=== PATIENT | female | born 1970 | race African-American/Black ===

== ENCOUNTER 2021-09-28 18:34 | Emergency (ER) | payer OTHER, SELFPAY ==
--- NOTE | 2021-09-28 18:38 | ED.BACK ---
HPI - Back Pain/Injury General Chief Complaint: Back Pain/Injury Stated Complaint: back pain Time Seen by Provider: 09/28/21 18:43 Source: patient, family and RN notes reviewed Mode of arrival: ambulatory Limitations: no limitations History of Present Illness HPI Narrative: 51 year old female who presents to [facility] accompanied by spouse with complaints of back pain mid thoracic region but denies any injury to her back for the past 4 days. Patient states that when she takes her vitamins in the morning she notices that her pain in her back is worse for 3-4 hours at 8/10 level then decreases.Patient states that she has not taken any OTC medications for her discomfort. Patient denies any pain at this time. Patient states history of parathyroidectomy in past concerned could maybe related to her calcium levels or maybe she has urinary problem. Patient denies any chest pain or any shortness of breath, denies any upper epigastric burning or any recent cold symptoms. MD elicited complaint: back pain Pertinent past history: prior back pain Timing: intermittent Related Data Home Medications Medication Instructions Recorded Confirmed [id number] K 1 tablet PO DIRECTED 09/28/21 09/28/21 [Adults Multivitamin] Allergies Allergy/AdvReac Type Severity Reaction Status Date / Time aspirin Allergy Unknown Verified 07/10/18 11:28 ioversol Allergy Unknown Verified 07/12/14 14:33 CODONE Allergy Unknown BREATHING Uncoded 08/25/15 15:11 ISSUES Contrast Media Allergy Unknown Uncoded 07/10/18 11:28 Review of Systems Review of Systems: CONSTITUTIONAL: Denies fever, chills, or sweats. EYES: Denies visual changes, redness, or discharge. ENT: Denies rhinorrhea, congestion, sore throat, or otalgia. CARDIOVASCULAR: Denies chest pain, palpitations, or edema. RESPIRATORY: Denies cough or dyspnea. GASTROINTESTINAL: Denies abdominal pain, nausea, vomiting, or diarrhea. GENITOURINARY: Denies dysuria or hematuria. SKIN: Denies rash or itching. MUSCULOSKELETAL: Reports thoracic back pain, no other joint pain, or myalgia. NEUROLOGIC: Denies headache, numbness, or weakness. PSYCHIATRIC: Denies anxiety or depression. All systems reviewed & are unremarkable except as noted in HPI and below PMFSH Past Medical History Medical History (Updated 09/29/21 @ 23:09 by Karyna Womack NP) Seasonal allergies Surgical History Surgical History (Updated 09/28/21 @ 19:22 by Karyna Womack NP) History of parathyroidectomy 2014 Family History Family History Father Malignant neoplasm of prostate Family history of diabetes mellitus in first degree relative Family history of heart disease in male family member before age 55 Social History Social History (Updated 09/29/21 @ 23:11 by Karyna Womack NP) Smoking status: Never smoker Alcohol intake: never Substance use: never Living arrangements: with family Gender identity (if verbalized by the patient): Female Comments At time of signature, agree with nursing past medical, surgical, social and family history. There is no relevant family history pertinent to the presenting complaint Exam Narrative: GENERAL: Well-appearing, well-nourished, and in no acute distress. HEAD: Normocephalic, atraumatic. EYES: PERRLA and EOMI. ENT: Nares clear, no rhinorrhea or epistaxis. Mucous membranes moist.TM's normal with good light reflex, throat pink with no lesions or exudates. NECK: Supple.no lymphadenopathy CHEST: Clear to auscultation. No respiratory distress.SAO2 100% on roam air, no cough noted or any feeling of chest congestion stated. HEART: Regular rate and rhythm. No murmur heard. Normal peripheral pulses. ABDOMEN: Soft, nontender, nondistended, normal active bowel sounds.no CVA tenderness noted on exam EXTREMITIES: Normal range of motion. No edema.No pain elicited to thoracic back on palpation, denies any pain
[2021-09-28 18:41] VITALS: BP 138/91; PULSE 85; RESP 18; TEMP 36.7; O2SAT 100
== END 2021-09-28 19:15 | disposition home or self-care (01) ==
PROVIDERS: Emergency Provider Registered Nurse; PCP Emergency Medicine
DX: M54.6 Pain in thoracic spine (principal)
CPT/HCPCS: 81003; 99202; G0463

== ENCOUNTER 2023-04-16 09:00 | Outpatient (CLI) | payer OTHER, SELFPAY ==
--- NOTE | ~2023-04-16 | US_ITS ---
EXAMINATION: US pelvic complete w TV DATE: 04/16/2023 09:35 INDICATION: Pelvic mass Comparison:02/24/2004 TECHNIQUE: Multiple transabdominal and endovaginal sonographic images of the pelvis performed. FINDINGS: The uterus measures 8.7 x 5.3 x 3.5 cm. The endometrium is not well delineated. There are m ultiple uterine fibroids, largest measuring 7.4 x 7.3 x 6.6 cm. The ovaries are not visualized. There is no free fluid in the pelvis. There are no abnormal masses seen on either side. IMPRESSION: 1. Uterine fibroids, largest measuring up to 7.4 cm. Reviewed, dictated and finalized at location B.
== END 2023-04-16 09:01 ==
PROVIDERS: PCP Obstetrics & Gynecology; Visit Provider Registered Nurse
DX: D25.9 Leiomyoma of uterus, unspecified (principal); R19.00 Intra-abdominal and pelvic swelling, mass and lump, unspecified site
CPT/HCPCS: 76830; 76856